=== PATIENT | male | born 1975 | race Caucasian/White ===

== ENCOUNTER 2017-02-26 19:15 | Emergency (ER) | payer OTHER ==
[~2017-02-26] VITALS: Ht 182.9 cm; Wt 80.0 kg
[~2017-02-26 19:15] MED LIST: ATARAX,VISTARIL50 MG PO; DESYREL100 MG PO; FLUOXETINE HCL20 MG PO; GABAPENTIN600 MG PO; KLONOPIN1 MG PO; NEURONTIN300 MG PO; NICOTINE PATCH1 EAC2 TD; QUETIAPINE FUM200 MG PO; SEROQUEL300 MG PO
[2017-02-26 23:29] LABS: EOSINOPHIL (%) 3.1 % (0-5); EOSINOPHIL COUNT 0.2 K/uL (0-0.3); HEMATOCRIT 41.7 % (38.0-50.0); IMMATURE GRANULOCYTE (%) 0.5 % (0.0-0.7); INSTRUMENT ABS NEUTROPHIL CT 3.3 K/uL; LYMPHOCYTE COUNT 2.1 K/uL (1.0-2.8); MCH 29.8 PG (29.0-34.0); MCHC 34.1 G/DL (30.0-36.0); MCV 87.4 FL (86-99); MEAN PLAT.VOLUME 9.2 uM^3 (9.0-12.4); MONOCYTE (%) 8.6 % (3-12); MONOCYTE COUNT 0.5 K/uL (0-0.8); NEUTROPHIL (%) 53.3 % (45-76); NEUTROPHIL COUNT 3.3 K/uL (1.8-6.4); PLATELET COUNT 252 K/uL (156-360); RBC DIS.WIDTH-CV 12.2 % (11.8-14.6); RBC DIS.WIDTH-SD 39.6 % (39-53); RED BLOOD COUNT 4.77 M/uL (4.00-5.50); WHITE BLOOD COUNT 6.2 K/uL (4.1-10.2)
[2017-02-26 23:40] LABS: CHLORIDE 105 mEq/L (99-109)
[2017-02-26 23:41] LABS: POTASSIUM 3.6 mEq/L (3.7-5.4); SODIUM 139 mEq/L (136-147)
[2017-02-26 23:42] LABS: GLUCOSE 104 mg/dL (70-99)
[2017-02-26 23:44] LABS: ANION GAP 6 MEQ/L (2-14)
[2017-02-26 23:45] LABS: SERUM ETHYL ALCOHOL < 10 mg/dL
[2017-02-26 23:46] LABS: GFR ESTIMATE (CALCULATED) > 59 mL/min/
[2017-02-26 23:47] LABS: UREA NITROGEN (BUN) 6 mg/dL (9-23)
[2017-02-27] MEDS ORDERED: KLONOPIN0.5 M1 PO (01:04)
[2017-02-27 01:12] VITALS: BP 117/83
== END 2017-02-27 01:36 | disposition home or self-care (01) ==
LOC: EME 19:15
PROVIDERS: Emergency Medicine
DX: F25.9 Schizoaffective disorder, unspecified (principal); R73.03 Prediabetes; E78.5 Hyperlipidemia, unspecified; F17.200 Nicotine dependence, unspecified, uncomplicated
CPT/HCPCS: 80048; 85025; 90839; 99281; 99284; G0480

== ENCOUNTER 2017-05-02 21:49 | Emergency (ER) | payer OTHER ==
[~2017-05-02] VITALS: Ht 182.9 cm; Wt 84.9 kg
[~2017-05-02 21:49] MED LIST changes: +KLONOPIN0.5 M1 PO
[2017-05-02 22:49] LABS: EOSINOPHIL (%) 4.3 % (0-5); EOSINOPHIL COUNT 0.3 K/uL (0-0.3); HEMATOCRIT 42.3 % (38.0-50.0); IMMATURE GRANULOCYTE (%) 0.1 % (0.0-0.7); INSTRUMENT ABS NEUTROPHIL CT 3.9 K/uL; LYMPHOCYTE COUNT 2.1 K/uL (1.0-2.8); MCH 30.3 PG (29.0-34.0); MCHC 34.3 G/DL (30.0-36.0); MCV 88.3 FL (86-99); MONOCYTE (%) 7.2 % (3-12); MONOCYTE COUNT 0.5 K/uL (0-0.8); NEUTROPHIL COUNT 3.9 K/uL (1.8-6.4); PLATELET COUNT 247 K/uL (156-360); RBC DIS.WIDTH-CV 12.5 % (11.8-14.6); RBC DIS.WIDTH-SD 41.1 % (39-53); RED BLOOD COUNT 4.79 M/uL (4.00-5.50); WHITE BLOOD COUNT 6.8 K/uL (4.1-10.2)
[2017-05-02 22:59] LABS: ANION GAP 6 MEQ/L (2-14); CHLORIDE 104 MEQ/L (99-109); POTASSIUM 3.9 MEQ/L (3.7-5.4); SAMPLE HEMOLYSIS CHECK 0; SAMPLE ICTERIC CHECK 0; SAMPLE LIPEMIA CHECK 0; SODIUM 137 MEQ/L (136-147); TOTAL BILIRUBIN 0.3 MG/DL (0.0-1.0)
[2017-05-02 23:07] LABS: ALKALINE PHOSPHATASE 54 IU/L (3-129); GFR ESTIMATE (CALCULATED) > 59 mL/min/; GLUCOSE 109 mg/dL (70-99); SALICYLATE < 3.0 MG/DL (15-30); UREA NITROGEN (BUN) 7 mg/dL (9-23)
[2017-05-02 23:45] LABS: SERUM ETHYL ALCOHOL < 10 mg/dL
[2017-05-03 00:45] VITALS: BP 119/84
== END 2017-05-03 00:46 | disposition home or self-care (01) ==
LOC: EME 21:49
PROVIDERS: Emergency Medicine
DX: F25.9 Schizoaffective disorder, unspecified (principal); F17.200 Nicotine dependence, unspecified, uncomplicated
CPT/HCPCS: 80053; 85025; 90839; 99281; 99285; G0480